=== PATIENT | male | born 2000 ===

== ENCOUNTER 2021-10-24 03:05 | Emergency (ER) | payer SELFPAY ==
[2021-10-24 03:52] VITALS: BP 137/88
[2021-10-24] MEDS ORDERED: LIDOCAINE-MPF (1%) 10 MG/1 ML VIAL 5 ML INFILTRATI ONE (04:22)
--- NOTE | 2021-10-24 04:35 | Emergency Department Report ---
ED Male HPI - General Chief complaint: Urogenital-Male Stated complaint: STD TEST Source: patient Mode of arrival: Ambulatory Limitations: No Limitations - History of Present Illness Initial comments: Patient is a 21-year-old -[place] male with no past medical history presented to the ED with complaint of acute onset persistent dysuria, penile discharge and urinary frequency and urgency for the last 3 days. Patient stated that he had unprotected sexual intercourse about 6 days ago. Patient also admits to having multiple sexual partners and is unsure as to whom he may have contracted the disease from. Patient denies testicular pain, hematuria, fever, chills, nausea, vomiting, abdominal pain, low back pain, chest pain or shortness of breath or sore throat. MD Complaint: penile discharge, dysuria -: Sudden, days(s) (3) Location: penis Radiation: none Severity: moderate Severity scale (0 -10): 5 Quality: aching, burning Consistency: constant Improves with: none Worsens with: urination denies other symptoms, discharge, dysuria. denies: swelling, mass, rash, urinary retention, blood in urine, fever, nausea/vomiting, incontinence - Related Data Sexually active: Yes (With multiple sexual partners and no protection) Previous Rx's Medication Instructions Recorded Last Taken Type Doxycycline Hyclate 100 mg PO Q12H #28 cap 10/24/21 Unknown Rx Ibuprofen [Motrin] 600 mg PO Q8H PRN #20 tablet 10/24/21 Unknown Rx Phenazopyridine [Pyridium] 200 mg PO BID #14 tab 10/24/21 Unknown Rx Allergies Allergy/AdvReac Type Severity Reaction Status Date / Time No Known Allergies Allergy Verified 10/24/21 03:50 ED Review of Systems ROS: Stated complaint: STD TEST Other details as noted in HPI Constitutional: denies: chills, fever Eyes: denies: eye pain, eye discharge, vision change ENT: denies: ear pain, throat pain Respiratory: denies: cough, shortness of breath, wheezing Cardiovascular: denies: chest pain, palpitations Endocrine: no symptoms reported Gastrointestinal: denies: abdominal pain, nausea, diarrhea Genitourinary: urgency, dysuria, frequency, discharge. denies: testicular pain, testicular mass Musculoskeletal: denies: back pain, joint swelling, arthralgia Skin: denies: rash, lesions Neurological: denies: headache, weakness, paresthesias Psychiatric: denies: anxiety, depression Hematological/Lymphatic: denies: easy bleeding, easy bruising ED Past Medical Hx - Past Medical History Previous Medical History?: No Additional medical history: Pt denies - Surgical History Past Surgical History?: No Additional Surgical History: Pt denies - Medications Home Medications: Home Medications Medication Instructions Recorded Confirmed Last Taken Type Doxycycline Hyclate 100 mg PO Q12H #28 cap 10/24/21 Unknown Rx Ibuprofen [Motrin] 600 mg PO Q8H PRN #20 tablet 10/24/21 Unknown Rx Phenazopyridine [Pyridium] 200 mg PO BID #14 tab 10/24/21 Unknown Rx ED Physical Exam - General Limitations: No Limitations General appearance: alert, in no apparent distress - Head Head exam: Present: atraumatic, normocephalic, normal inspection - Eye Eye exam: Present: normal appearance, PERRL, EOMI Pupils: Present: normal accommodation - ENT ENT exam: Present: normal exam, normal orophraynx, mucous membranes moist, TM's normal bilaterally, normal external ear exam - Neck Neck exam: Present: normal inspection, full ROM - Respiratory Respiratory exam: Present: normal lung sounds bilaterally. Absent: respiratory distress, wheezes, rales, rhonchi, chest wall tenderness, accessory muscle use, decreased breath sounds, other - Cardiovascular Cardiovascular Exam: Present: regular rate, normal rhythm, normal heart sounds. Absent: systolic murmur, diastolic murmur, rubs, gallop - GI/Abdominal GI/Abdominal exam: Present: soft, normal bowel sounds. Absent: tenderness, guarding, rebound, hyperactive bowel sounds, hypoactive bowel sounds, organomegaly - External exam: Present: other (Genital exam deferred at this time) - Extremities Exam Extremities exam: Present: normal inspection, full ROM, normal capillary refill. Absent: tenderness, pedal edema, joint swelling, calf tenderness - Back Exam Back exam: Present: normal inspection, full ROM. Absent: tenderness, CVA tenderness (R), CVA tenderness (L), muscle spasm, paraspinal tenderness, vertebral tenderness, rash noted - Neurological Exam Neurological exam: Present: alert, oriented X3, CN II-XII intact, normal gait, reflexes normal - Psychiatric Psychiatric exam: Present: normal affect, normal mood - Skin Skin exam: Present: warm, dry, intact, normal color. Absent: rash ED Course Vital Signs 10/24/21 03:47 Temperature 98.5 F Pulse Rate 80 Respiratory 16 Rate Blood Pressure 137/88 [Right] O2 Sat by Pulse 99 Oximetry ED Medical Decision Making - Medical Decision Making This is a 21-year-old -[place] male with no past medical history presented to the ED with complaint of acute onset persistent dysuria, penile discharge and urinary frequency and urgency for the last 3 days. Patient stated that he had unprotected sexual intercourse about 6 days ago. Patient also admits to having multiple sexual partners and is unsure as to whom he may have contracted the disease from. In the ED, patient is alert and oriented x3 and is not in any distress. Urinalysis was ordered, and patient was empirically treated for suspected gonorrhea with Rocephin 1 g intramuscular injection, patient was discharged home on doxycycline and advised to ensure that his sexual partners get treated for the same. Patient was also advised to follow-up with [facility] for further STD testing including syphilis and HIV. Patient was advised to return to the ED immediately if symptoms get worse, otherwise follow-up with his primary care physician in 7 to 10 days for reevaluation. Patient was also encouraged to observe safe sexual practices. - Differential Diagnosis Gonorrhea urethritis; chlamydia urethritis; STD; UTI Critical care attestation.: If time is entered above; I have spent that time in minutes in the direct care of this critically ill patient, excluding procedure time. ED Disposition Clinical Impression: STD (sexually transmitted disease), Urethritis, gonococcal, acute, Urethritis due to Chlamydia trachomatis Disposition: HOME / SELF CARE / HOMELESS Is pt being admited?: No Does the pt Need Aspirin: No Condition: Stable Instructions: Gonococcal Urethritis (ED), Chlamydia, Male, Urethritis, Adult, Gonorrhea, Safe Sex Additional Instructions: Take medication with food, drink plenty of fluids and follow-up with the [facility] department for further STD testing including HIV and syphilis. Ensure that all sexual partners get treated for the same. Observe safe sexual practices. Return to the ED immediately if symptoms get worse, otherwise follow-up with your primary care physician in 7 to 10 days for reevaluation. Prescriptions: Doxycycline Hyclate 100 mg PO Q12H #28 cap Ibuprofen [Motrin] 600 mg PO Q8H PRN #20 tablet PRN Reason: Pain Phenazopyridine [Pyridium] 200 mg PO BID #14 tab Referrals: [facility] [Outside] - 3-5 Days Time of Disposition: 04:36 Print Language: INDONESIAN
[2021-10-24 05:03] LABS: Bilirubin,Urine NEG (Negative); Blood,Urine NEG (Negative); Color,Urine Yellow (Yellow); Mucus,Urine FEW /HPF; Protein,Urine <15 mg/dL mg/dL (Negative); Urobilinogen,Urine < 2.0 mg/dL (<2.0)
== END 2021-10-24 05:59 | disposition home or self-care (01) ==
LOC: ED 03:05
DX: A64 Unspecified sexually transmitted disease (principal); A54.9 Gonococcal infection, unspecified; A56.01 Chlamydial cystitis and urethritis; Z79.899 Other long term (current) drug therapy
CPT/HCPCS: 81001; 87086; 96372; 99283; J0696; J3490